=== PATIENT | male | born 1965 | race Hispanic/Latino ===

== ENCOUNTER 2019-05-03 14:11 | Emergency (ER) | payer OTHER ==
[2019-05-03] MEDS ORDERED: IBUPROFEN 400 MG TAB ONE (14:44)
[2019-05-03] MEDS ORDERED: IBUPROFEN 200 MG TAB PO ONE (14:44)
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
[2019-05-03 16:30] VITALS: BP 164/82; TEMP 98.9; O2SAT 97
== END 2019-05-03 16:20 | disposition home or self-care (01) ==
LOC: ER 14:11
DX: S16.1XXA Strain of muscle, fascia and tendon at neck level, initial encounter (principal); V59.40XA Driver of pick-up truck or van injured in collision with unspecified motor vehicles in traffic accident, initial encounter; I10 Essential (primary) hypertension
CPT/HCPCS: 70450; 72125; 99284